=== PATIENT | female | born 1970 | race Caucasian/White ===

== ENCOUNTER → 2016-10-04 | Day surgery (SDC) | payer OTHER | END | disposition home or self-care (01) | LOC: FAS 11:28 | DX: K64.8 Other hemorrhoids (principal); K21.9 Gastro-esophageal reflux disease without esophagitis; I10 Essential (primary) hypertension; F43.10 Post-traumatic stress disorder, unspecified; E03.9 Hypothyroidism, unspecified; E11.9 Type 2 diabetes mellitus without complications; Z90.89 Acquired absence of other organs; Z90.49 Acquired absence of other specified parts of digestive tract; Z98.1 Arthrodesis status; Z98.890 Other specified postprocedural states; Z85.850 Personal history of malignant neoplasm of thyroid; Z86.711 Personal history of pulmonary embolism; Z88.5 Allergy status to narcotic agent; Z79.84 Long term (current) use of oral hypoglycemic drugs; Z79.899 Other long term (current) drug therapy | CPT/HCPCS: 88305; J2704 ==

== ENCOUNTER → 2021-07-21 | Day surgery (SDC) | payer OTHER ==
[~2021-07-21] VITALS: Ht 175.3 cm; Wt 115.8 kg
[~2021-07-21] MED LIST: AMARYL2 MG PO; ATENOLOL25 M1 PO; CEFDINIR300 M1 PO; CITALOPRAM HBR40 MG PO; CYCLOBENZAPRINE10 MG PO; ENOXAPARIN80 MG/0.8 SUBD; IBUPROFEN800 M1 PO; LANTUS SOL100 UNIT/1 SC; LEVOTHYROXINE137 MCG PO; LISINOPRIL20 MG PO; NOVOLIN R100 UNIT/1 SC; OMEPRAZOLE 20MG20 MG PO; OXYCODONE-ACET1 EAC1 PO; QUETIAPINE FUMA25 MG PO; STAHIST AD TAB1 EACH PO; WARFARIN SODIUM10 MG PO
[2021-07-21 07:58] LABS: HCG (URINE) SCREEN NEGATIVE (NEGATIVE)
[2021-07-21 08:25] LABS: INR 1.04 (0.9-1.2); PTT 21.8 SECONDS (24.4-34.7)
== END | disposition home or self-care (01) ==
LOC: FAS 07:43
PROVIDERS: Anesthesiology; Obstetrics & Gynecology
DX: C54.1 Malignant neoplasm of endometrium (principal); C54.9 Malignant neoplasm of corpus uteri, unspecified; C55 Malignant neoplasm of uterus, part unspecified; K21.9 Gastro-esophageal reflux disease without esophagitis; I10 Essential (primary) hypertension; E66.9 Obesity, unspecified; E11.9 Type 2 diabetes mellitus without complications; Z80.49 Family history of malignant neoplasm of other genital organs; Z79.01 Long term (current) use of anticoagulants; Z88.6 Allergy status to analgesic agent; Z88.8 Allergy status to other drugs, medicaments and biological substances; Z85.850 Personal history of malignant neoplasm of thyroid; Z98.84 Bariatric surgery status; Z98.51 Tubal ligation status; Z20.822 Contact with and (suspected) exposure to COVID-19
CPT/HCPCS: 36415; 84703; 85610; 85730; 93005; J1644; J1885; J2250; J2405; J2704; J3010; J7120